=== PATIENT | male | born 1960 | race Caucasian/White ===

== ENCOUNTER → 2020-03-09 | Outpatient (CLI) | payer OTHER, BC ==
--- NOTE | 2020-03-09 09:40 | KCIC ---
MRI study of the left knee without contrast Clinical indications: Patient slipped and fell on ice and landed on medial side of the left knee 3 da ys ago. Pain and swelling and difficulty walking since that time. TECHNIQUE: Noncontrast MRI sequences of the left knee were performed in all 3 planes. FINDINGS: The anterior and posterior cruciate ligaments are intact. The quadriceps and patellar tendo ns are intact. There is a complex tear of the posterior horn and posterior body of the medial meniscu s which extends to the superior and inferior articular surfaces. The lateral meniscus is intact. The medial collateral ligament is intact and no meniscocapsular separation is seen. The lateral collatera l ligament complex and popliteus tendon and iliotibial band are intact. No posterior lateral corner i njury is seen. No bone contusion or fracture or marrow infiltrative process is seen. Mild chondromala sruthi of the articular cartilage of the medial femoral condyle is seen without articular cartilage defe ct. The patella is normally aligned. There is a linear defect/tear and a flap of articular cartilage involving the lateral patellar facet. The femoral trochlear articular cartilage is unremarkable. The medial and lateral retinacular ligaments are intact. Small knee joint effusion is seen. No loose body is evident. No distended Forte's cyst is seen. However, there is edema of the popliteal fossa around the medial head of the gastrocnemius muscle and the semimembranosus muscle and vastus medialis of th e distal quadriceps. This could be due to edema from recent rupture of a Forte's cyst or could repres ent soft tissue edema related to soft tissue contusion from the recent fall. No muscle edema is seen otherwise. IMPRESSION: Complex tear of the posterior horn and body of the medial meniscus. No ligament tear. Soft tissue edema of the medial aspect of the left knee as discussed above. There is a linear defect/tear with a flap of articular cartilage of the lateral patellar facet. This could be related to the recent injury or chondromalacia patellae. Electronically signed by: Ronak Urbano MD (03/09/2020 9:37 AM) [place] [id number]
== END ==
LOC: KCIC MRI 08:24
PROVIDERS: ATTEND Preventive Medicine Occupational Medicine
DX: S83.232A Complex tear of medial meniscus, current injury, left knee, initial encounter (principal); X58.XXXA Exposure to other specified factors, initial encounter; Y93.89 Activity, other specified; Y92.89 Other specified places as the place of occurrence of the external cause; Y99.8 Other external cause status
CPT/HCPCS: 73721